=== PATIENT | male | born 2000 | race Caucasian/White ===

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

== ENCOUNTER 2023-04-09 15:47 | Emergency (ER) | payer MEDICAID ==
[~2023-04-09] VITALS: Ht 182.9 cm; Wt 117.0 kg
[2023-04-09 15:59] VITALS: BP 140/84; PULSE 101; RESP 20; TEMP 98.3; O2SAT 98
== END 2023-04-09 20:17 | disposition home or self-care (01) ==
LOC: ER 15:47
DX: R20.2 Paresthesia of skin (principal); F41.9 Anxiety disorder, unspecified
CPT/HCPCS: 99281